=== PATIENT | male | born 1925 | race Caucasian/White ===

== ENCOUNTER 2017-05-22 13:31 | Inpatient (IN) | payer MEDICARE, OTHER ==
[~2017-05-22] VITALS: Ht 162.6 cm; Wt 68.0 kg
[2017-05-22] MEDS ORDERED: ASPIR 8181 MG ORAL (13:36)
[2017-05-22] MEDS ORDERED: JANUVIA25 MG ORAL (13:36)
[2017-05-22] MEDS ORDERED: LIPITOR40 MG ORAL (13:36)
--- NOTE | 2017-05-22 13:54 | Emergency Room Report ---
History of Present Illness General Chief Complaint: Generalized Weakness Source: Family Member Present Illness HPI Patient is a 89 year male presented for increased generalized weakness. Patient gradual onset of symptoms. Patient was seen at clinic earlier in the day. Patient was noted to have prior history of anemia and normally gets iron treatments at Dr. Ogden's office. The patient's family member states that he has not been for several weeks. The patient had prior history of cardiac disease and renal disease. Patient was noted to have low blood pressure at the clinic today and was sent to the hospital for further evaluation. The patient is followed by Dr. Rachel Rowe for cardiology Allergies: Coded Allergies: No Known Allergies (Unverified , 05/22/17) Patient History Past Medical History: see triage record Reviewed Nursing Documentation: PMH: Agreed, PSxH: Agreed Nursing Documentation-PMH Hx COPD: Yes Hx Diabetes: Yes Review of Systems All Other Systems: negative except mentioned in HPI Physical Exam Vital Signs Date Time Temp Pulse Resp B/P (MAP) Pulse Ox O2 Delivery O2 Flow Rate FiO2 05/22/17 13:24 97.7 136 16 136/66 96 Room Air General Appearance: alert, Chronically Ill ENT: uvula midline, moist mucus membranes Neck: limited range of motion Respiratory: lungs clear, normal breath sounds Cardiovascular #1: normal peripheral pulses, no edema Gastrointestinal: normal inspection, non tender, soft Musculoskeletal: normal inspection Neurologic: oriented x3, responsive, vegetable inspector III-XII nml as tested Skin: normal color Medical Decision Making Diagnostic Impression: Primary Impression: Generalized weakness Additional Impression: Acute urinary retention ER Course Patient presented for generalized weakness. Differential diagnosis included was not limited to anemia, urinary tract infection, electrolyte abnormality, hypothyroidism, myocardial infarction, myasthenia gravis, dehydration, among others. Because of complexity of patient's case laboratory testing and imaging studies were ordered.Patient was discussed with Dr. Rachel Rowe for inpatient management Labs Test 05/22/17 13:35 05/22/17 15:20 Urine Color Pale yellow Urine Appearance Clear Urine pH 5 (4.5-8.0) Urine Specific [place] 1.015 (1.005-1.035) Urine Protein 3+ (NEGATIVE) Urine Glucose (UA) Negative (NEGATIVE) Urine Ketones Negative (NEGATIVE) Urine Occult Blood Negative (NEGATIVE) Urine Nitrite Negative (NEGATIVE) Urine Bilirubin Negative (NEGATIVE) Urine Urobilinogen Normal MG/DL (0.0-1.0) Urine Leukocyte Esterase Negative (NEGATIVE) Urine RBC 0 /HPF (0 - 0) Urine WBC 0-2 /HPF (0 - 0) Urine Squamous Epithelial Cells Occasional /LPF Urine Bacteria Occasional /HPF (NONE) White Blood Count 8.6 K/UL (4.8-10.8) Red Blood Count 3.11 M/UL (4.70-6.10) Hemoglobin 9.4 G/DL (14.2-18.0) Hematocrit 31.0 % (42.0-52.0) Mean Corpuscular Volume 100 FL (80-99) Mean Corpuscular Hemoglobin 30.2 PG (27.0-31.0) Mean Corpuscular Hemoglobin Concent 30.3 G/DL (32.0-36.0) Red Cell Distribution Width 13.5 % (11.6-14.8) Platelet Count 182 K/UL (150-450) Mean Platelet Volume 6.1 FL (6.5-10.1) Neutrophils (%) (Auto) 69.6 % (45.0-75.0) Lymphocytes (%) (Auto) 19.8 % (20.0-45.0) Monocytes (%) (Auto) 6.6 % (1.0-10.0) Eosinophils (%) (Auto) 3.2 % (0.0-3.0) Basophils (%) (Auto) 0.8 % (0.0-2.0) Sodium Level 138 MMOL/L (136-145) Potassium Level 4.9 MMOL/L (3.5-5.1) Chloride Level 107 MMOL/L (98-107) Carbon Dioxide Level 20 MMOL/L (21-32) Anion Gap 11 mmol/L (5-15) Blood Urea Nitrogen 14 mg/dL (7-18) Creatinine 3.8 MG/DL (0.55-1.30) Estimat Glomerular Filtration Rate mL/min (>60) Glucose Level 139 MG/DL (74-106) Calcium Level 9.7 MG/DL (8.5-10.1) Troponin I 0.055 ng/mL (0.000-0.056) EKG Diagnostic Results Rate: normal Rhythm: NSR ST Segments: other - lateral st depression Last Vital Signs Date Time Temp Pulse Resp B/P (MAP) Pulse Ox O2 Delivery O2 Flow Rate FiO2 05/22/17 13:24 97.7 136 16 136/66 96 Room Air Status: unchanged Disposition: ADMITTED INPATIENT Po Baker May 22, 2017 13:54
[2017-05-22 14:00] VITALS: BP 145/47
[2017-05-22 14:57] LABS: APPEARANCE,URINE CLEAR; BILIRUBIN, URINE NEGATIVE (NEGATIVE); COLOR,URINE PALE YELLOW; GLUCOSE, URINE (UA) NEGATIVE (NEGATIVE); KETONES,URINE NEGATIVE (NEGATIVE); LEUKOCYTE ESTERASE ,URINE NEGATIVE (NEGATIVE); NITRITE,URINE NEGATIVE (NEGATIVE); PH,URINE 5 (4.5-8.0); PROTEIN,URINE 3+ (NEGATIVE); UROBILINOGEN,URINE NORMAL MG/DL (0.0-1.0)
[2017-05-22 15:32] LABS: BASOPHILS % (AUTO) 0.8 % (0.0-2.0); EOSINOPHILS % (AUTO) 3.2 % (0.0-3.0); HEMOGLOBIN 9.4 G/DL (14.2-18.0); LYMPHOCYTES % (AUTO) 19.8 % (20.0-45.0); MEAN CORPUSCULAR VOLUME 100 FL (80-99); MONOCYTES % (AUTO) 6.6 % (1.0-10.0); NEUTROPHILS % (AUTO) 69.6 % (45.0-75.0); PLATELET COUNT 182 K/UL (150-450); RED BLOOD COUNT 3.11 M/UL (4.70-6.10); RED CELL DISTRIBUTION WIDTH 13.5 % (11.6-14.8); WHITE BLOOD COUNT 8.6 K/UL (4.8-10.8)
--- NOTE | 2017-05-22 15:45 | Diagnostic Imaging Report ---
Indication: Dyspnea Comparison: 05/26/2007 A single view chest radiograph was obtained. Findings: No definite infiltrate or pulmonary vascular congestion identified. The heart is enlarged. The aorta is mildly enlarged consistent with atherosclerotic vascular disease. The bones are osteopenic. Impression: No acute disease
[2017-05-22 15:51] LABS: ANION GAP 11 mmol/L (5-15); BLOOD UREA NITROGEN 14 mg/dL (7-18); CALCIUM 9.7 MG/DL (8.5-10.1); CARBON DIOXIDE 20 MMOL/L (21-32); CHLORIDE 107 MMOL/L (98-107); CREATININE 3.8 MG/DL (0.55-1.30); POTASSIUM 4.9 MMOL/L (3.5-5.1); SODIUM 138 MMOL/L (136-145)
[2017-05-22 16:00] VITALS: BP 152/61
[2017-05-22 16:03] LABS: ALANINE AMINOTRANSFERASE 9 U/L (12-78); ALBUMIN 3.5 G/DL (3.4-5.0); ALKALINE PHOSPHATASE 79 U/L (46-116); ASPARTATE AMINO TRANSFERASE 13 U/L (15-37); BILIRUBIN,TOTAL 0.2 MG/DL (0.2-1.0); CREATINE KINASE 46 U/L (26-308)
[2017-05-22 18:00] VITALS: BP 153/63
[2017-05-22 20:00] VITALS: BP 135/89
[2017-05-22] MEDS: Albuterol/Ipratropium 3ml neb HHN SCH (20:40)
[2017-05-22] MEDS ORDERED: Zolpidem 5mg tab ORAL PRN (21:00)
[2017-05-22] MEDS: Docusate 100mg cap ORAL SCH (21:10)
--- NOTE | 2017-05-22 22:36 | Cardiology Progress Note ---
Subjective Subjective The patient with multiple medical problems presented with orthostatic dizziness Objective Last 24 Hour Vital Signs Date Time Temp Pulse Resp B/P (MAP) Pulse Ox O2 Delivery O2 Flow Rate FiO2 05/22/17 20:54 80 18 99 Room Air 21 05/22/17 20:52 21 05/22/17 20:52 80 18 99 Room Air 21 05/22/17 20:50 80 18 Room Air 21 05/22/17 18:00 53 18 153/63 99 Room Air 05/22/17 16:00 98.2 68 22 152/61 99 Room Air 05/22/17 14:00 67 20 145/47 99 Room Air 05/22/17 13:24 97.7 136 16 136/66 96 Room Air Laboratory Tests Test 05/22/17 13:35 05/22/17 15:20 Urine Color Pale yellow Urine Appearance Clear Urine pH 5 (4.5-8.0) Urine Specific [place] 1.015 (1.005-1.035) Urine Protein 3+ (NEGATIVE) H Urine Glucose (UA) Negative (NEGATIVE) Urine Ketones Negative (NEGATIVE) Urine Occult Blood Negative (NEGATIVE) Urine Nitrite Negative (NEGATIVE) Urine Bilirubin Negative (NEGATIVE) Urine Urobilinogen Normal MG/DL (0.0-1.0) Urine Leukocyte Esterase Negative (NEGATIVE) Urine RBC 0 /HPF (0 - 0) Urine WBC 0-2 /HPF (0 - 0) Urine Squamous Epithelial Cells Occasional /LPF Urine Bacteria Occasional /HPF (NONE) White Blood Count 8.6 K/UL (4.8-10.8) Red Blood Count 3.11 M/UL (4.70-6.10) L Hemoglobin 9.4 G/DL (14.2-18.0) L Hematocrit 31.0 % (42.0-52.0) L Mean Corpuscular Volume 100 FL (80-99) H Mean Corpuscular Hemoglobin 30.2 PG (27.0-31.0) Mean Corpuscular Hemoglobin Concent 30.3 G/DL (32.0-36.0) L Red Cell Distribution Width 13.5 % (11.6-14.8) Platelet Count 182 K/UL (150-450) Mean Platelet Volume 6.1 FL (6.5-10.1) L Neutrophils (%) (Auto) 69.6 % (45.0-75.0) Lymphocytes (%) (Auto) 19.8 % (20.0-45.0) L Monocytes (%) (Auto) 6.6 % (1.0-10.0) Eosinophils (%) (Auto) 3.2 % (0.0-3.0) H Basophils (%) (Auto) 0.8 % (0.0-2.0) Sodium Level 138 MMOL/L (136-145) Potassium Level 4.9 MMOL/L (3.5-5.1) Chloride Level 107 MMOL/L (98-107) Carbon Dioxide Level 20 MMOL/L (21-32) L Anion Gap 11 mmol/L (5-15) Blood Urea Nitrogen 14 mg/dL (7-18) Creatinine 3.8 MG/DL (0.55-1.30) H Estimat Glomerular Filtration Rate mL/min (>60) Glucose Level 139 MG/DL (74-106) H Lactic Acid Level 1.60 mmol/L (0.66-2.22) Calcium Level 9.7 MG/DL (8.5-10.1) Total Bilirubin 0.2 MG/DL (0.2-1.0) Aspartate Amino Transf (AST/SGOT) 13 U/L (15-37) L Alanine Aminotransferase (ALT/SGPT) 9 U/L (12-78) L Alkaline Phosphatase 79 U/L (46-116) Total Creatine Kinase 46 U/L (26-308) Creatine Kinase MB 2.0 NG/ML (0.0-3.6) Creatine Kinase MB Relative Index 4.3 Troponin I 0.055 ng/mL (0.000-0.056) Total Protein 7.1 G/DL (6.4-8.2) Albumin 3.5 G/DL (3.4-5.0) Globulin 3.6 g/dL Albumin/Globulin Ratio 1.0 (1.0-2.7) CARLOS REAGAN May 22, 2017 22:36
[2017-05-22 23:51] VITALS: BP 132/66
[2017-05-23] MEDS: Albuterol/Ipratropium 3ml neb HHN SCH ×4 (02:25→19:03)
[2017-05-23 04:41] VITALS: BP 137/65
[2017-05-23 07:49] LABS: BASOPHILS % (AUTO) 0.7 % (0.0-2.0); EOSINOPHILS % (AUTO) 0.3 % (0.0-3.0); HEMATOCRIT 26.4 % (42.0-52.0); HEMOGLOBIN 8.3 G/DL (14.2-18.0); LYMPHOCYTES % (AUTO) 13.4 % (20.0-45.0); MEAN CORPUSCULAR VOLUME 101 FL (80-99); MONOCYTES % (AUTO) 6.9 % (1.0-10.0); NEUTROPHILS % (AUTO) 78.7 % (45.0-75.0); PLATELET COUNT 183 K/UL (150-450); RED BLOOD COUNT 2.62 M/UL (4.70-6.10); RED CELL DISTRIBUTION WIDTH 13.7 % (11.6-14.8); WHITE BLOOD COUNT 9.8 K/UL (4.8-10.8)
[2017-05-23 08:00] VITALS: BP 113/54
[2017-05-23] MEDS: Docusate 100mg cap ORAL SCH ×2 (09:24→20:59)
[2017-05-23 12:00] VITALS: BP 143/60
[2017-05-23 16:00] VITALS: BP 140/50
[2017-05-23 20:33] VITALS: BP 136/56
--- NOTE | 2017-05-24 17:15 | Cardiology Progress Note ---
Subjective Subjective [id number] Objective Last 24 Hour Vital Signs Date Time Temp Pulse Resp B/P (MAP) Pulse Ox O2 Delivery O2 Flow Rate FiO2 05/23/17 20:47 120 05/23/17 20:38 100 05/23/17 20:33 97 05/23/17 20:33 99.1 97 20 136/56 98 05/23/17 20:00 85 05/23/17 19:20 87 18 98 Room Air 21 05/23/17 19:05 85 18 96 Room Air 21 Intake and Output 05/23/17 05/24/17 19:00 07:00 Intake Total 360 ml Balance 360 ml Intake Oral 360 ml Microbiology Date/Time Source Procedure Growth Status 05/22/17 15:20 Blood Blood Culture - Preliminary NO GROWTH AFTER 24 HOURS Resulted 05/22/17 15:20 Blood Blood Culture - Preliminary NO GROWTH AFTER 24 HOURS Resulted CARLOS REAGAN May 24, 2017 17:15
--- NOTE | 2017-05-24 21:30 | Discharge Summary ---
DATE OF ADMISSION: 05/22/2017 DATE OF DISCHARGE: 05/23/2017 IDENTIFICATION: The patient is an 89-year-old gentleman. DIAGNOSIS ON DISCHARGE: 1. Orthostatic hypotension, symptomatic due to autonomic neuropathy. 2. Diabetes mellitus. 3. Severe aortic stenosis. 4. Chronic severe renal disease. 5. Anemia. 6. History of congestive heart failure. 7. Dementia. 8. Altered mental status. CONDITION: Guarded. DESTINATION: Home. ACTIVITY: Ambulate with assistance. MEDICATIONS: Please see discharge medication list. BRIEF HOSPITAL SUMMARY: The patient is well known to me. He came in after he was symptomatically orthostatic in doctor's office and he was sent to the emergency department. He was worked up for orthostatic hypotension and he became extremely confused and agitated. The family became very alarmed and they opted to take him home to see if he is better. The patient is being discharged home. His daughter understands all potential risks and complications. The patient had so many medical problems. Unexpected adverse outcome could be anticipated anytime from multiple medical problems, that was clarified with the family and then patient was discharged . Rachel Marte M.D. DR: Janine JOB#: [id number] CC:
--- NOTE | 2017-05-24 23:45 | History and Physical Report ---
DATE OF ADMISSION: 05/22/2017 IDENTIFYING INFORMATION: This is an 89-year-old male. REASON FOR ADMISSION: Dizziness with standing up and presyncope. HISTORY OF PRESENT ILLNESS: The patient was sent from the office of beater tender where he was visiting and he felt . The patient was brought to [facility] and kept for further evaluation. The patient is a [place] known to [place] with multiple medical problems including severe aortic stenosis, congestive heart failure, dilated cardiomyopathy, chronic severe kidney disease, diabetes mellitus poorly treated, severe chronic obstructive pulmonary disease, carotid stenosis post surgery, orthostatic hypotension, anemia, history of gastrointestinal bleed, and others. PAST SURGICAL HISTORY: Remarkable for endoscopy and hip surgery for fracture. MEDICATIONS: The patient's medications at home, he was supposed to take aspirin, atorvastatin, and sitagliptin. He also had been prescribed furosemide and carvedilol, unfortunately, it is very hard to determine, which medication he actually is taking because of variable compliance. ALLERGIES: Not reported. HABITS: He smoked heavily for many years, many decades. He quit maybe recently, but I cannot exclude that he still smokes. There is no history of alcohol abuse or drug abuse. PHYSICAL EXAMINATION: GENERAL: Reveals an elderly gentleman, not in acute distress, but chronically very ill appearing. VITAL SIGNS: His blood pressure was 140/70, heart rate is 67, temperature was normal, and oxygen saturation on 2 liters was 96%. HEENT: He has divergent strabismus and poor pupil reaction on the left side. Otherwise no facial asymmetry. Mucosae are pale and dry. NECK: Supple. Jugular venous pressure is approximately 8 cm. Carotid upstroke is preserved. LUNGS: There are few crackles at bases and some rhonchi. HEART: Regular with accentuated S1 and very diminished A2. ABDOMEN: Soft and distended. Positive bowel sounds. No rebound. No guarding. EXTREMITIES: Lower extremity, distal pulses very poor. He had no edema. NEUROLOGIC: He is slightly confused. He has severe gait instability . His orthostatics, I did not personally check. LABORATORY DATA: Upon admission, his hemoglobin was 9.4, WBC 8.6, and platelets 182. His sodium was 138, potassium 4.9, chloride 107, BUN was 14, creatinine 3.8, and glucose 134. Troponin 0.055. His ECG shows sinus rhythm with left ventricular hypertrophy. His chest x-ray did not show any infiltrates in his lungs and he has cardiomegaly. IMPRESSION AND RECOMMENDATIONS: Syncope, most likely presyncope, most likely due to orthostatic hypotension and he has this for many years. He is a diabetic, very brittle with poor controlled blood sugar. Now, his blood sugar is better after his kidneys started working. He also has anemia, which is chronic and probably a combination of anemia of chronic disease related to kidney disease and possibly others. The patient also has multiple other medical problems including severe aortic stenosis, congestive heart failure, chronic renal disease, mild dementia, and chronic obstructive pulmonary disease. These problems are not acute at present time. Also, I spoke to the daughter and she tried to minimize his hospital admission. She understands very well that the patient is not very stable and she did not want to keep him in the hospital. Longtime ago, they decided that they do not want any cardiac procedures done. So, we are going to check his orthostatics. We will repeat his troponin. Considering that troponin is slightly elevated, we are going to follow his anemia and potentially consider blood transfusion if it is very, very low. We are going to start him on physical therapy. That all were discussed with the nursing staff and the family. Rachel Marte M.D. DR: AMAN JOB#: [id number] CC:
--- NOTE | 2017-05-25 15:08 | Cardiology Report ---
APPROVED REPORT EKG Measurement Heart [id number] CO [id number] Normal sinus rhythm with sinus arrhythmia Abnormal ECG
== END 2017-05-23 23:35 | disposition home or self-care (01) | DRG 74 ==
LOC: EDBD 13:31 → EMR 14:02 → 2E 14:18 → EDBEDREQ 15:32 → 2E 23:18
DX: G90.9 Disorder of the autonomic nervous system, unspecified (principal); E11.22 Type 2 diabetes mellitus with diabetic chronic kidney disease; F03.90 Unspecified dementia, unspecified severity, without behavioral disturbance, psychotic disturbance, mood disturbance, and anxiety; I95.1 Orthostatic hypotension; I50.9 Heart failure, unspecified; R33.9 Retention of urine, unspecified; R53.1 Weakness; N18.9 Chronic kidney disease, unspecified; J44.9 Chronic obstructive pulmonary disease, unspecified; Z87.891 Personal history of nicotine dependence; I35.0 Nonrheumatic aortic (valve) stenosis; D63.8 Anemia in other chronic diseases classified elsewhere; Z87.19 Personal history of other diseases of the digestive system
CPT/HCPCS: 36415; 51702; 71045; 80053; 81003; 82550; 82553; 82962; 83605; 84484; 85025; 87040; 93005; 94640; 94664; 99285; J7620